=== PATIENT | male | born 1980 | race Caucasian/White ===

== ENCOUNTER 2017-05-05 00:22 | Emergency (ER) | payer OTHER ==
[2017-05-05 00:34] VITALS: RESP 20
[2017-05-05] MEDS ORDERED: HYDROmorphone 1 MG/ML 1 ML SYRINGE IM STA (01:19)
--- NOTE | 2017-05-05 01:41 | ED ---
Lower Extremity Injury HPI - General Chief Complaint: Extremity Injury, Lower Stated Complaint: right foot pain Time Seen by Provider: 05/05/17 00:37 Source: patient, RN notes reviewed, old records reviewed Mode of arrival: wheelchair Limitations: no limitations - History of Present Illness Initial Comments: 37-year-old male presents to the ED chief complaint of right foot pain. Patient reports that he was playing football with his children and was wearing flip-flops. Patient reports that he thinks he sprained his foot and ankle. Patient reports that he was sitting watching a movie and then noticed the foot was starting to swell, patient reports he has had a difficult time bearing weight on it. Patient denies any calf pain. He states that he has no previous injuries over the foot. He also complains of some right-sided jaw pain and occasional right arm and elbow pain. Patient is concerned that he may be having a heart attack. Patient denies any chest pain or shortness of breath. He reports he does have a family history of heart disease. Discussed that I can do an EKG for the patient. Patient is very concerned about the amount of pain that he is in. - Related Data Previous Rx's Medication Instructions Recorded HYDROcodone/APAP 5-325MG [[place] 1 tab PO Q6HR PRN #15 tab 05/05/17 5-325] Allergies Allergy/AdvReac Type Severity Reaction Status Date / Time Penicillins Allergy Rash/Hives Verified 05/05/17 00:34 Review of Systems ROS Statement: Those systems with pertinent positive or pertinent negative responses have been documented in the HPI. ROS Other: All systems not noted in ROS Statement are negative. Past Medical History Past Medical History: No Reported History History of Any Multi-Drug Resistant Organisms: None Reported Past Surgical History: Appendectomy Past Psychological History: ADD/ADHD Smoking Status: Never smoker Past Alcohol Use History: None Reported Past Drug Use History: None Reported General Exam - General Exam Comments Initial Comments: 37-year-old male. No acute distress. Limitations: no limitations General appearance: alert, in no apparent distress Head exam: Present: atraumatic, normocephalic, normal inspection Eye exam: Present: normal appearance, PERRL, EOMI. Absent: scleral icterus, conjunctival injection, periorbital swelling ENT exam: Present: normal exam, mucous membranes moist Neck exam: Present: normal inspection. Absent: tenderness, meningismus, lymphadenopathy Respiratory exam: Present: normal lung sounds bilaterally. Absent: respiratory distress, wheezes, rales, rhonchi, stridor Cardiovascular Exam: Present: regular rate, normal rhythm, normal heart sounds. Absent: systolic murmur, diastolic murmur, rubs, gallop, clicks GI/Abdominal exam: Present: soft, normal bowel sounds. Absent: distended, tenderness, guarding, rebound, rigid Extremities exam: Present: normal inspection, full ROM, normal capillary refill , other (right foot pain and swelling. Pain and most swelling is over mid dorsum of the foot. ). Absent: tenderness, pedal edema, joint swelling, calf tenderness Back exam: Present: normal inspection Neurological exam: Present: alert, oriented X3, CN II-XII intact Psychiatric exam: Present: normal affect, normal mood Skin exam: Present: warm, dry, intact, normal color. Absent: rash Course Vital Signs 05/05/17 05/05/17 00:29 02:17 Temperature 98.3 F 100.1 F H Pulse Rate 99 84 Respiratory 20 20 Rate Blood Pressure 160/82 133/80 O2 Sat by Pulse 100 100 Oximetry Procedures - Orthopedic Splinting/Casting Injury #1 Side: right Lower Extremity Injury Location: foot Lower Extremity Immobilizer: posterior splint Other Orthopedic Equipment: crutches Medical Decision Making - Medical Decision Making 37-year-old male presents to the ED chief complaint of right foot pain. Patient reports that he was playing football with his children and was wearing flip-flops. Patient reports that he thinks he sprained his foot and ankle. Patient reports that he was sitting watching a movie and then noticed the foot was starting to swell. Patient denies any calf pain. He states that he has no previous injuries over the foot. Pt xray was reviewed and shows fracture of medial cuniform bone. Patient was placed on a posterior splint, given crutches, and advised to follow up with orthopedic. Patient EKG Was normal. Patient was advised jaw and tooth pain is probably related to grinding teeth at night. Patient is a concrete mixer truck driver. Patient instructed to be non weight bearing. Return parameters discussed. 05/05/17 01:50 EKG shows normal sinus rhythm. Patient rate of 84 bpm. OR interval 160 ms. No evidence of ST elevation or T-wave inversion. QRS duration 90 ms. QTC 352/ 450 ms. - Radiology Data Radiology results: report reviewed Medial cuneiform fracture with suspected injury to lisfranc ligament. Disposition Clinical Impression: Fracture of medial cuneiform of right foot Disposition: HOME SELF-CARE Condition: Good Instructions: Foot Fracture in Adults (ED) Additional Instructions: Patient advised to remain in the splint. Follow-up with orthopedic physician tomorrow. Patient should ambulate with crutches. Return to the emergency department if any alarming signs or symptoms occur. Prescriptions: HYDROcodone/APAP 5-325MG [[place] 5-325] 1 tab PO Q6HR PRN #15 tab PRN Reason: Pain Referrals: Amalia Valente MD [Primary Care Provider] - 1-2 days Time of Disposition: 02:04
--- NOTE | 2017-05-05 01:57 | XR ---
EXAM: XR Right Ankle Complete, 3 Views XR Right Foot Complete, 3 Views CLINICAL HISTORY: Reason: Pain TECHNIQUE: Frontal, lateral and oblique views of the right ankle and foot. COMPARISON: No relevant prior studies available. FINDINGS: Bones/joints: Acute nondisplaced fracture of the medial cuneiform with suspected injury to the Lisfranc ligament. Intact ankle mortise. Soft tissues: Mild soft tissue swelling of the lateral ankle and dorsal foot. IMPRESSION: 1. Acute nondisplaced fracture of the medial cuneiform with suspected injury to the Lisfranc ligament. 2. Intact ankle mortise. 3. Mild soft tissue swelling of the lateral ankle and dorsal foot. [employer] 05/05/17 02:06 Verify Receipt Verified receipt with CYNTHIA Carrasco for MIRANDA Maddox on 05/05 02:05 (-04:00)
[2017-05-05] MEDS ORDERED: ACET/COD 300 MG/30 MG STARTER PACK 6 TAB BTL PO STA (02:04)
[2017-05-05 02:24] VITALS: BP 133/80; PULSE 84; TEMP 100.1
== END 2017-05-05 02:20 | disposition home or self-care (01) ==
LOC: EC 00:22
DX: S92.244A Nondisplaced fracture of medial cuneiform of right foot, initial encounter for closed fracture (principal); R68.84 Jaw pain; K08.89 Other specified disorders of teeth and supporting structures; Z88.0 Allergy status to penicillin; X50.1XXA Overexertion from prolonged static or awkward postures, initial encounter; Y93.61 Activity, american tackle football; M25.521 Pain in right elbow; M79.601 Pain in right arm
CPT/HCPCS: 99284; 96372; 29515; 93005; 73610; 73630; J1170

== ENCOUNTER → 2017-05-12 | Outpatient (CLI) | payer OTHER ==
--- NOTE | 2017-05-12 13:05 | CT ---
EXAMINATION TYPE: CT foot RT wo con DATE OF EXAM: 05/12/2017 COMPARISON: NONE HISTORY: Right foot pain CT DLP: 276 mGycm Automated exposure control for dose reduction was used. FINDINGS: Axial images 3 millimeters thick sections. Reconstructed images in coronal and sagittal images. Hammertoes may be present. The ankle mortise appears intact. Small chip fracture may be from the inferior aspect proximal second metatarsal. Series 9 image 20. Th ere is a comminuted fracture of the medial cuneiform. Metatarsal cuneiform orientation is preserved. IMPRESSION: 1. COMMINUTED FRACTURE MEDIAL CUNEIFORM. 2. SMALL CHIP FRACTURE SUSPECTED FROM THE INFERIOR ASPECT PROXIMAL SECOND METATARSAL
== END | disposition home or self-care (01) ==
LOC: RADCTMAIN 07:48
PROVIDERS: ATTEND Orthopaedic Surgery
DX: S92.241A Displaced fracture of medial cuneiform of right foot, initial encounter for closed fracture (principal)

== ENCOUNTER → 2022-05-14 | Outpatient (CLI) | payer OTHER ==
[2022-05-14 18:15] LABS: Basophils # (A) 0.05 X 10*3/uL (0.00-0.10); Basophils % (A) 0.6 %; Eosinophils # (A) 0.34 X 10*3/uL (0.04-0.35); Eosinophils % (A) 3.8 %; HCT 46.1 % (39.6-50.0); HGB 15.1 g/dL (13.0-17.0); Immature Grans, Automated 0.3 %; Lymphocytes # (A) 2.31 X 10*3/uL (0.90-5.00); Lymphocytes % (A) 25.6 %; MCH 29.6 pg (27.0-32.0); MCHC 32.8 g/dL (32.0-37.0); MCV 90.4 fL (80.0-97.0); Mean Platelet Volume 10.3 fL (9.5-12.2); Monocytes % (A) 5.5 %; NRBC Per 100 WBC 0 /100 WBCS (0.0-0.0); Neutrophils # (A) 5.79 X 10*3/uL (1.80-7.70); Neutrophils % (A) 64.2 %; Platelet Count 331 X 10*3/uL (140-440); RDW 12.8 % (11.5-14.5); WBC 9.02 X 10*3/uL (4.50-10.00)
[2022-05-14 18:32] LABS: Hepatitis A Antibody IgM Nonreactive (Nonreactive); Hepatitis B Core IgM Nonreactive (Nonreactive); Hepatitis B Surface Antigen Nonreactive (Nonreactive); Hepatitis C IgG Antibody Nonreactive (Nonreactive)
[2022-05-14 18:34] LABS: Prostate Specific Antigen 0.7 ng/mL (0.00-2.50); T4, Free (Free Thyroxine) 0.95 ng/dL (0.800-1.800)
[2022-05-14 18:44] LABS: Erythrocyte Sedimentation Rate 32 mm/Hr (0-15)
[2022-05-14 21:40] LABS: C Reactive Protein 0.6 mg/dL (0.00-0.80); Magnesium 1.9 mg/dL (1.5-2.4); Phosphorus 2.5 mg/dL (2.4-5.1)
[2022-05-14 21:46] LABS: African American GFR (CKD) 103.1 (60.0-200.0); Albumin 4.2 g/dL (3.8-4.9); Albumin/Globulin Ratio 1.4 (1.60-3.17); Anion Gap 14.6 mmol/L (10.00-18.00); BUN/Creat Ratio 12.84 Ratio (12.00-20.00); Blood Urea Nitrogen 13.1 mg/dL (9.0-27.0); Calcium 9.4 mg/dL (8.7-10.3); Potassium 4.1 mmol/L (3.5-5.5); Total Bilirubin 0.5 mg/dL (0.30-1.20); Total Protein 7.2 g/dL (6.2-8.2)
== END | disposition home or self-care (01) ==
LOC: LABWHC1 11:28
PROVIDERS: ATTEND Internal Medicine
DX: N40.0 Benign prostatic hyperplasia without lower urinary tract symptoms (principal); E11.9 Type 2 diabetes mellitus without complications; I10 Essential (primary) hypertension; E87.8 Other disorders of electrolyte and fluid balance, not elsewhere classified; E03.9 Hypothyroidism, unspecified; E55.9 Vitamin D deficiency, unspecified
CPT/HCPCS: 36415; 80053; 80074; 82306; 82550; 83036; 83735; 84100; 84153; 84439; 84443; 85025; 85652; 86140

== ENCOUNTER → 2022-11-15 | Outpatient (CLI) | payer OTHER ==
[2022-11-15 22:38] LABS: Basophils # (A) 0.03 X 10*3/uL (0.00-0.10); Basophils % (A) 0.4 %; Eosinophils # (A) 0.85 X 10*3/uL (0.04-0.35); HCT 44.5 % (39.6-50.0); HGB 14.8 g/dL (13.0-17.0); Immature Grans, Automated 0.5 %; Lymphocytes # (A) 2.22 X 10*3/uL (0.90-5.00); Lymphocytes % (A) 26.2 %; MCH 30.8 pg (27.0-32.0); MCHC 33.3 g/dL (32.0-37.0); MCV 92.5 fL (80.0-97.0); Monocytes # (A) 0.41 X 10*3/uL (0.20-1.00); Monocytes % (A) 4.8 %; NRBC Per 100 WBC 0 /100 WBCS (0.0-0.0); Neutrophils # (A) 4.93 X 10*3/uL (1.80-7.70); Neutrophils % (A) 58.1 %; Platelet Count 355 X 10*3/uL (140-440); RBC 4.81 X 10*6/uL (4.40-5.60); RDW 13.2 % (11.5-14.5); WBC 8.48 X 10*3/uL (4.50-10.00)
[2022-11-15 23:33] LABS: Hepatitis A Antibody IgM Nonreactive (Nonreactive); Hepatitis B Core IgM Nonreactive (Nonreactive); Hepatitis B Surface Antigen Nonreactive (Nonreactive); Hepatitis C IgG Antibody Nonreactive (Nonreactive)
[2022-11-15 23:59] LABS: % Iron Saturation 17.81 (15.00-50.00); ALT 118 U/L (10-49); AST 43 U/L (14-35); African American GFR (CKD) 100.7 (60.0-200.0); Albumin 4.1 g/dL (3.8-4.9); Albumin/Globulin Ratio 1.56 (1.60-3.17); Alkaline Phosphatase 114 U/L (41-126); Blood Urea Nitrogen 13.1 mg/dL (9.0-27.0); Calcium 9.2 mg/dL (8.7-10.3); Carbon Dioxide 24.4 mmol/L (20.0-27.5); Chloride 102 mmol/L (96-109); Chol/HDL Ratio 5.21 Ratio; Globulin 2.6 g/dL (1.6-3.3); Glucose 194 mg/dL (70-110); Iron 62 ug/dL (65-175); LDL Cholesterol,Calculated 108.4 mg/dL (0.0-131.0); Non-African American GFR(CKD) 86.9 (60.0-200.0); Potassium 4.2 mmol/L (3.5-5.5); Sodium 140 mmol/L (135-145); Total Iron Binding Capacity 349 ug/dL (228-460); Total Protein 6.7 g/dL (6.2-8.2); VLDL Calculation 19.34 mg/dL (5.00-40.00)
[2022-11-16 00:09] LABS: Ceruloplasmin 23.9 mg/dL (20.0-60.0)
== END | disposition home or self-care (01) ==
LOC: LABWHC1 12:43
PROVIDERS: ATTEND Internal Medicine
DX: E11.9 Type 2 diabetes mellitus without complications (principal); R74.01 Elevation of levels of liver transaminase levels
CPT/HCPCS: 36415; 80053; 80061; 80074; 82043; 82390; 82525; 82570; 82728; 83036; 83516; 83540; 83550; 84443; 85025; 86038; 86645; 86665

== ENCOUNTER → 2023-02-21 | Outpatient (CLI) | payer OTHER ==
--- NOTE | 2023-02-21 16:33 | US ---
EXAMINATION TYPE: US liver DATE OF EXAM: 02/21/2023 COMPARISON: NONE CLINICAL INDICATION: Male, 42 years old with history of K75.81 nonalcholoic steatohepatitis(BAIRES); El evated liver enzymes TECHNIQUE: Multiple sonographic images of the right upper quadrant are obtained. FINDINGS: EXAM MEASUREMENTS: Liver Length: 16.4 cm Gallbladder Wall: .2 cm CBD: .3 cm Right Kidney: 10.4 x 5.1 x 5.2 cm [employer] NOTES: Pancreas: Obscured by bowel gas Liver: Increased attenuation , no suspicious masses. Gallbladder: Stones visualized Evidence for sonographic Bloom's sign: No CBD: wnl Right Kidney: No hydronephrosis or masses seen IMPRESSION: 1. Hepatic steatosis 2. Cholelithiasis.
== END | disposition home or self-care (01) ==
LOC: RADUSWWP 15:48
PROVIDERS: ATTEND Internal Medicine
DX: K75.81 Nonalcoholic steatohepatitis (NASH) (principal); K80.20 Calculus of gallbladder without cholecystitis without obstruction
CPT/HCPCS: 76705

== ENCOUNTER → 2024-02-13 | Outpatient (CLI) | payer OTHER ==
--- NOTE | 2024-02-13 15:14 | NM ---
EXAMINATION TYPE: NM hepatobiliary w EF DATE OF EXAM: 02/13/2024 COMPARISON: NONE INDICATION: Right upper quadrant pain TECHNIQUE: After the intravenous administration of 5.11 mCi Tc 99m Mebrofenin hepatobiliary scintigra phy is performed. Images were obtained immediately post injection. FINDINGS: There is prompt uptake and excretion of radiotracer by the liver. Extrahepatic ducts are identified at 4 minutes. The gallbladder is visualized within 6 minutes. Small bowel activity is noted within 10 minutes. At one hour 8 ounces of oral ensure plus is given to mimic CCK and gallbladder ejection fraction is c alculated at 86 %, which is in the normal range. (Normal >35% and <80%.). IMPRESSION: 1. Correlate for biliary hyperkinesia.
== END | disposition home or self-care (01) ==
LOC: RADNMMAIN 12:36
PROVIDERS: ATTEND Internal Medicine
DX: R10.11 Right upper quadrant pain (principal)
CPT/HCPCS: 78226; A9537